=== PATIENT | male | born 1980 | race Caucasian/White ===

== ENCOUNTER → 2016-12-03 | Emergency (ER) | payer OTHER, SELFPAY ==
[~2016-12-03] VITALS: Ht 182.9 cm; Wt 86.2 kg
[~2016-12-03] MED LIST: AMOX500C; CARB20TA PO; CARB20TAXR; CLIN1CAP5 PO; CYCL5TA; IBUP600T26; carBAMazepine 200 MG TAB PO ONE
[2016-12-03 20:22] LABS: BASO % 0.4 % (0.0-1.0); EOS # 0.1 K/mm3 (0.0-0.50); LARGE UNSTAINED CELL # 0.2 K/mm3 (0.0-0.4); LYMPH # 2.7 K/mm3 (1.5-4.5); LYMPH % 31.1 % (24.0-44.0); MEAN CORPUSCULAR HGB CONC 33.2 g/dl (32.0-36.5); MEAN CORPUSCULAR VOLUME 96.5 fl (80.0-96.0); MONO # 0.5 K/mm3 (0.0-0.8); MONO % 5.6 % (0.0-5.0); NEUTROPHILS # 4.9 K/mm3 (1.8-7.7); NEUTROPHILS % 59.8 % (36.0-66.0); PLATELET COUNT, AUTOMATED 185 k/mm3 (150-450); RED CELL DISTRIBUTION WIDTH 12.6 % (11.5-14.5); WHITE BLOOD COUNT 8.2 K/mm3 (4.0-10.0)
[2016-12-03 20:43] LABS: ALBUMIN 3.8 GM/DL (3.2-5.2); ALBUMIN/GLOBULIN RATIO 1.41 (1.00-1.93); ALKALINE PHOSPHATASE 78 U/L (45-117); ALT/SGPT 42 U/L (12-78); ANION GAP 10 MEQ/L (8-16); AST/SGOT 25 U/L (15-37); BILIRUBIN,DIRECT < 0.1 MG/DL (0.0-0.2); BILIRUBIN,TOTAL 0.2 MG/DL (0.2-1.0); BLOOD UREA NITROGEN 8 MG/DL (7-18); CALCIUM LEVEL 8.7 MG/DL (8.5-10.1); CARBON DIOXIDE LEVEL 24 MEQ/L (21-32); CHLORIDE LEVEL 109 MEQ/L (98-107); CREATININE FOR GFR 1.22 MG/DL (0.70-1.30); GLOMERULAR FILTRATION RATE > 60.0 (>60); GLUCOSE, FASTING 120 MG/DL (70-105); POTASSIUM SERUM 3.7 MEQ/L (3.5-5.1); SODIUM LEVEL 143 MEQ/L (136-145); TOTAL PROTEIN 6.5 GM/DL (6.4-8.2)
[2016-12-03 21:54] VITALS: BP 138/74
--- NOTE | 2016-12-03 22:18 | ECGEPIP ---
Stationary ECG Study [facility] - ED Test Date: 2016-12-03 Pat Name: NAALILIA RAZA Department: Room: - Gender: M [employer] Manager: GrovesB: 1980 Requested By: VILLA SHARPE Order Number: [id number] Reading MD: Americo Moy Measurements Intervals [place] Rate: 82 P: 49 MD: 192 QRS: 26 QRSD: 85 T: 40 QT: 360 QTc: 422 Interpretive Statements SINUS RHYTHM Electronically Signed On 12-03-2016 22:18:12 EDT by Americo Moy
== END | disposition home or self-care (01) ==
LOC: EDUNIT# 19:39 → EDBD 19:43 → M ED 21:06
DX: G40.909 Epilepsy, unspecified, not intractable, without status epilepticus (principal); I10 Essential (primary) hypertension; Z79.899 Other long term (current) drug therapy; Z79.2 Long term (current) use of antibiotics

== ENCOUNTER 2017-04-16 15:49 | Emergency (ER) | payer MEDICAID, SELFPAY ==
[~2017-04-16] VITALS: Ht 182.9 cm; Wt 81.0 kg
[~2017-04-16 15:49] MED LIST changes: +CARB200T98; -CARB20TAXR; +CLIN150C14 PO; -CLIN1CAP5 PO; -CYCL5TA; +CYCL5TAB; +IBUP-1022; -IBUP600T26; -carBAMazepine 200 MG TAB PO ONE
[2017-04-16] MEDS ORDERED: ZONI100C2 OR (16:06)
[2017-04-16] MEDS ORDERED: NS 500 ML IV ONE (16:15)
--- NOTE | 2017-04-16 16:29 | REP ---
CT Head without contrast HISTORY: Altered mental status COMPARISON: 06/29/2016 There is no intraparenchymal hemorrhage, acute infarct, mass or midline shift. The ventricular system is normal in appearance. There is no extra cerebral collection. There is no fracture. The visualized sinuses are clear. 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 IMPRESSION: There is no intracranial lesion. Signed by Mj Pringle MD 04/16/2017 04:21 P
[2017-04-16 16:32] LABS: BASO % 0.2 % (0.0-1.0); EOS % 0.6 % (0.0-3.0); LARGE UNSTAINED CELL # 0.1 K/mm3 (0.0-0.4); LARGE UNSTAINED CELL % 1.1 % (0.0-4.0); LYMPH # 1.4 K/mm3 (1.5-4.5); LYMPH % 24.9 % (24.0-44.0); MEAN CORPUSCULAR HEMOGLOBIN 32.3 pg (27.0-33.0); MEAN CORPUSCULAR HGB CONC 33.7 g/dl (32.0-36.5); MEAN CORPUSCULAR VOLUME 95.8 fl (80.0-96.0); MONO # 0.3 K/mm3 (0.0-0.8); MONO % 5.2 % (0.0-5.0); NEUTROPHILS # 3.6 K/mm3 (1.8-7.7); NEUTROPHILS % 68.1 % (36.0-66.0); PLATELET COUNT, AUTOMATED 163 k/mm3 (150-450); RED CELL DISTRIBUTION WIDTH 12.6 % (11.5-14.5); WHITE BLOOD COUNT 5.3 K/mm3 (4.0-10.0)
--- NOTE | 2017-04-16 16:36 | REP ---
Chest one-view HISTORY: Altered mental status Comparison: 11/18/2014 The lungs are clear. The heart is normal in size. The pulmonary vasculature is normal in appearance. Impression: No acute disease. Signed by Mj Pringle MD 04/16/2017 04:29 P
[2017-04-16 16:45] LABS: ALBUMIN 4.2 GM/DL (3.2-5.2); ALBUMIN/GLOBULIN RATIO 1.45 (1.00-1.93); ALT/SGPT 26 U/L (12-78); ANION GAP 8 MEQ/L (8-16); AST/SGOT 12 U/L (15-37); BILIRUBIN,DIRECT 0.1 MG/DL (0.0-0.2); BILIRUBIN,TOTAL 0.4 MG/DL (0.2-1.0); BLOOD UREA NITROGEN 8 MG/DL (7-18); CALCIUM LEVEL 9.2 MG/DL (8.5-10.1); CARBAMAZEPINE (TEGRETOL) LEVEL 16.6 UG/ML (4.0-10.0); CARBON DIOXIDE LEVEL 25 MEQ/L (21-32); CHLORIDE LEVEL 109 MEQ/L (98-107); CREATININE FOR GFR 1.18 MG/DL (0.70-1.30); GLOMERULAR FILTRATION RATE > 60.0 (>60); GLUCOSE, FASTING 150 MG/DL (70-105); POTASSIUM SERUM 3.9 MEQ/L (3.5-5.1); SODIUM LEVEL 142 MEQ/L (136-145); TOTAL PROTEIN 7.1 GM/DL (6.4-8.2)
[2017-04-16 16:49] LABS: ALKALINE PHOSPHATASE 74 U/L (45-117)
[2017-04-16] MEDS ORDERED: ONDANSETRON 4MG/2ML VIAL (J2405) IV ONE (17:30)
[2017-04-16 17:48] LABS: METHADONE URINE NEGATIVE (NEGATIVE)
[2017-04-16] MEDS ORDERED: carBAMazepine XR 200 MG TAB PO ONE (18:00)
[2017-04-16] MEDS ORDERED: MAGNESIUM CITRATE 300 ML BTL PO ONE (18:30)
[2017-04-16] MEDS ORDERED: COLA100C5 PO (18:33)
[2017-04-16 18:50] VITALS: BP 142/87
--- NOTE | 2017-04-17 14:01 | ECGEPIP ---
Stationary ECG Study [facility] - ED Test Date: 2017-04-16 Pat Name: ANALILIA RAZA Department: Room: - Gender: M Asphalt Spreader Operator: sb : 1980 Requested By: Kaley Yeung Order Number: [id number] Reading MD: Tess Trejo Measurements Intervals [place] Rate: 62 P: 58 VA: 200 QRS: 76 QRSD: 91 T: 50 QT: 377 QTc: 385 Interpretive Statements SINUS RHYTHM EARLY REPOLARIZATION PROBABLE CLINICAL CORRELATION Electronically Signed On 04-17-2017 14:01:32 EDT by Tess Trejo
== END 2017-04-16 19:04 | disposition home or self-care (01) ==
LOC: M ED 15:49 → EDBD 15:49 → M ED 19:04
DX: G40.909 Epilepsy, unspecified, not intractable, without status epilepticus (principal); R41.82 Altered mental status, unspecified; R63.4 Abnormal weight loss; K59.00 Constipation, unspecified; I10 Essential (primary) hypertension; Z79.899 Other long term (current) drug therapy
CPT/HCPCS: 51701; 70450; 71010; 80048; 80076; 80156; 80164; 80307; 81001; 82140; 82550; 82553; 83605; 84443; 85025; 87086; 93005; 93041; 94760; 96374; 99285; G0480; J2405

== ENCOUNTER 2017-09-27 22:48 | Emergency (ER) | payer MEDICAID, OTHER ==
[2017-09-27 23:47] LABS: ANION GAP 8 MEQ/L (8-16); BLOOD UREA NITROGEN 8 MG/DL (7-18); CALCIUM LEVEL 8.5 MG/DL (8.5-10.1); CARBAMAZEPINE (TEGRETOL) LEVEL 1.1 UG/ML (4.0-10.0); CARBON DIOXIDE LEVEL 26 MEQ/L (21-32); CHLORIDE LEVEL 111 MEQ/L (98-107); CREATININE FOR GFR 1.06 MG/DL (0.70-1.30); GLOMERULAR FILTRATION RATE > 60.0 (>60); GLUCOSE, FASTING 116 MG/DL (70-105); POTASSIUM SERUM 3.5 MEQ/L (3.5-5.1); SODIUM LEVEL 145 MEQ/L (136-145)
[2017-09-28 00:02] LABS: ETHYL ALCOHOL (ETHANOL) < 0.003 % (0.000-0.010)
[2017-09-28] MEDS: carBAMazepine 200 MG TAB PO ×2 (00:29)
== END 2017-09-28 00:44 | disposition home or self-care (01) ==
LOC: M ED 22:48
DX: G40.909 Epilepsy, unspecified, not intractable, without status epilepticus (principal); Z91.14 Patient's other noncompliance with medication regimen; F17.200 Nicotine dependence, unspecified, uncomplicated; Z79.899 Other long term (current) drug therapy
CPT/HCPCS: 80320; G0480

== ENCOUNTER 2017-10-18 16:46 | Emergency (ER) | payer MEDICAID, OTHER ==
[2017-10-18 17:04] LABS: HEMATOCRIT 43.2 % (42.0-52.0); HEMOGLOBIN 13.7 g/dl (14.0-18.0); MEAN CORPUSCULAR HEMOGLOBIN 31.9 pg (27.0-33.0); MEAN CORPUSCULAR HGB CONC 31.7 g/dl (32.0-36.5); MEAN CORPUSCULAR VOLUME 100.5 fl (80.0-96.0); PLATELET COUNT, AUTOMATED 192 10^3/uL (150-450); RED CELL DISTRIBUTION WIDTH 12.2 % (11.5-14.5)
[2017-10-18] MEDS: LORazepam 2 MG/ML VIAL (J2060) IV ×2 (17:06)
[2017-10-18 17:10] LABS: ADD MANUAL DIFFER YES; DIFF SLIDE NUMBER 263; POSITIVE DIFF POS FLAG; WHITE BLOOD COUNT 10.9 10^3/uL (4.0-10.0)
[2017-10-18 17:31] LABS: ANION GAP 21 MEQ/L (8-16); BLOOD UREA NITROGEN 10 MG/DL (7-18); CALCIUM LEVEL 8.8 MG/DL (8.5-10.1); CARBON DIOXIDE LEVEL 13 MEQ/L (21-32); CHLORIDE LEVEL 108 MEQ/L (98-107); CREATININE FOR GFR 1.19 MG/DL (0.70-1.30); GLOMERULAR FILTRATION RATE > 60.0 (>60); GLUCOSE, FASTING 122 MG/DL (70-100); POTASSIUM SERUM 3.6 MEQ/L (3.5-5.1); SODIUM LEVEL 142 MEQ/L (136-145)
[2017-10-18] MEDS: NS 1,000 ML IV ×2 (17:33)
[2017-10-18 17:38] LABS: ATYPICAL LYMPH 7 % (0-5); EOSINOPHILS 1 % (0-5); LYMPHOCYTES 47 % (16-52); MONOCYTES 7 % (0-8); NEUTROPHILS 38 % (35-75); PLATELET ESTIMATE NORMAL (NORMAL)
[2017-10-18 17:39] LABS: POIKILOCYTOSIS 1+; TEAR DROP CELLS 1+
[2017-10-18 18:12] LABS: AMPHETAMINES LEVEL URINE NEGATIVE (NEGATIVE); BARBITURATES URINE NEGATIVE (NEGATIVE); BENZODIAZEPINES URINE NEGATIVE (NEGATIVE); CANNABINOIDS URINE POSITIVE (NEGATIVE); COCAINE METABOLITE URINE NEGATIVE (NEGATIVE); METHADONE URINE NEGATIVE (NEGATIVE); OPIATES URINE NEGATIVE (NEGATIVE); PHENCYCLIDINE URINE NEGATIVE (NEGATIVE)
[2017-10-18] MEDS: carBAMazepine 200 MG TAB PO ×4 (19:40→19:41)
[2017-10-18] MEDS: ZONISAMIDE 100 MG CAP (ZONEGRAN) PO ×2 (19:49)
[2017-10-19] MEDS ORDERED: ZONISAMIDE 100 MG CAP (ZONEGRAN) PO ×2 (09:00)
[2017-10-22 00:08] LABS: TOPIRAMATE LEVEL None Detected ug/mL (2.0-25.0)
== END 2017-10-18 20:00 | disposition home or self-care (01) ==
LOC: M ED 16:46
DX: G40.909 Epilepsy, unspecified, not intractable, without status epilepticus (principal); I10 Essential (primary) hypertension; F17.200 Nicotine dependence, unspecified, uncomplicated; Z79.899 Other long term (current) drug therapy
CPT/HCPCS: J2060

== ENCOUNTER 2018-01-16 18:10 | Emergency (ER) | payer MEDICAID ==
[2018-01-16 19:04] LABS: BASO % 0.5 % (0.0-1.0); EOS # 0.1 10^3/uL (0.0-0.50); EOS % 1.3 % (0.0-3.0); HEMOGLOBIN 13.8 g/dl (13.5-17.5); IMMATURE GRANULOCYTE % 0.5 % (0-3.0); LYMPH # 2.8 10^3/uL (1.5-4.5); LYMPH % 34.8 % (24.0-44.0); MEAN CORPUSCULAR HEMOGLOBIN 31.1 pg (27.0-33.0); MEAN CORPUSCULAR HGB CONC 32.9 g/dl (32.0-36.5); MEAN CORPUSCULAR VOLUME 94.6 fl (80.0-96.0); MONO # 0.7 10^3/uL (0.0-0.8); MONO % 8.7 % (0.0-5.0); NEUTROPHILS # 4.3 10^3/uL (1.8-7.7); NEUTROPHILS % 54.2 % (36.0-66.0); PLATELET COUNT, AUTOMATED 184 10^3/uL (150-450); RED BLOOD COUNT 4.44 10^6/uL (4.30-6.10); RED CELL DISTRIBUTION WIDTH 12.1 % (11.5-14.5)
[2018-01-16 19:20] LABS: ANION GAP 16 MEQ/L (8-16); BLOOD UREA NITROGEN 11 MG/DL (7-18); CALCIUM LEVEL 8.5 MG/DL (8.5-10.1); CARBAMAZEPINE (TEGRETOL) LEVEL < 0.5 UG/ML (4.0-10.0); CARBON DIOXIDE LEVEL 19 MEQ/L (21-32); CHLORIDE LEVEL 107 MEQ/L (98-107); CREATININE FOR GFR 1.32 MG/DL (0.70-1.30); ETHYL ALCOHOL (ETHANOL) < 0.003 % (0.000-0.010); GLOMERULAR FILTRATION RATE > 60.0 (>60); GLUCOSE, FASTING 92 MG/DL (70-100); POTASSIUM SERUM 3.5 MEQ/L (3.5-5.1); SODIUM LEVEL 142 MEQ/L (136-145)
[2018-01-16] MEDS: carBAMazepine 200 MG TAB PO (20:06)
[2018-01-16] MEDS: ZONISAMIDE 100 MG CAP (ZONEGRAN) PO (20:28)
[2018-01-16] MEDS: TETANUS/DIPHTHERIA TOX ADSORB ADULT 0.5ML SYR/VIAL (90714) IM (20:45)
[2018-01-16] MEDS: NS 1,000 ML IV (20:46)
== END 2018-01-16 21:47 | disposition home or self-care (01) ==
LOC: M ED 18:10
DX: G40.909 Epilepsy, unspecified, not intractable, without status epilepticus (principal); Z91.14 Patient's other noncompliance with medication regimen; Z79.899 Other long term (current) drug therapy
CPT/HCPCS: 90714

== ENCOUNTER 2018-01-31 21:34 | Emergency (ER) | payer OTHER, MEDICAID | END 2018-01-31 23:00 | disposition left against medical advice (07) | LOC: M ED 21:34 | DX: R56.9 Unspecified convulsions (principal) | CPT/HCPCS: 93005 ==

== ENCOUNTER 2018-02-04 16:17 | Emergency (ER) | payer OTHER | END 2018-02-04 17:15 | disposition home or self-care (01) | LOC: M ED 16:17 | DX: Z76.0 Encounter for issue of repeat prescription (principal); G40.909 Epilepsy, unspecified, not intractable, without status epilepticus; F17.200 Nicotine dependence, unspecified, uncomplicated; Z79.899 Other long term (current) drug therapy | CPT/HCPCS: 99282 ==

== ENCOUNTER → 2018-05-28 | Outpatient (REF) | payer MEDICAID ==
[2018-05-28 18:15] LABS: BASO % 0.6 % (0.0-1.0); EOS # 0.1 10^3/uL (0.0-0.50); EOS % 1.4 % (0.0-3.0); HEMATOCRIT 41.7 % (42.0-52.0); HEMOGLOBIN 13.7 g/dl (13.5-17.5); IMMATURE GRANULOCYTE % 0.2 % (0-3.0); LYMPH % 40.3 % (24.0-44.0); MEAN CORPUSCULAR HEMOGLOBIN 31.1 pg (27.0-33.0); MEAN CORPUSCULAR HGB CONC 32.9 g/dl (32.0-36.5); MEAN CORPUSCULAR VOLUME 94.8 fl (80.0-96.0); MONO # 0.4 10^3/uL (0.0-0.8); MONO % 8.2 % (0.0-5.0); NEUTROPHILS # 2.5 10^3/uL (1.8-7.7); NEUTROPHILS % 49.3 % (36.0-66.0); PLATELET COUNT, AUTOMATED 174 10^3/uL (150-450); RED CELL DISTRIBUTION WIDTH 12.9 % (11.5-14.5)
[2018-05-28 18:16] LABS: ALBUMIN 4.2 GM/DL (3.2-5.2); ALBUMIN/GLOBULIN RATIO 1.68 (1.00-1.93); ALKALINE PHOSPHATASE 72 U/L (45-117); ALT/SGPT 30 U/L (12-78); ANION GAP 7 MEQ/L (8-16); AST/SGOT 19 U/L (7-37); BILIRUBIN,TOTAL 0.2 MG/DL (0.2-1.0); BLOOD UREA NITROGEN 9 MG/DL (7-18); CALCIUM LEVEL 8.8 MG/DL (8.5-10.1); CARBAMAZEPINE (TEGRETOL) LEVEL 8.7 UG/ML (4.0-10.0); CARBON DIOXIDE LEVEL 26 MEQ/L (21-32); CHLORIDE LEVEL 111 MEQ/L (98-107); CREATININE FOR GFR 1.15 MG/DL (0.70-1.30); GLOMERULAR FILTRATION RATE > 60.0 (>60); GLUCOSE, FASTING 74 MG/DL (70-100); POTASSIUM SERUM 4.4 MEQ/L (3.5-5.1); SODIUM LEVEL 144 MEQ/L (136-145); TOTAL PROTEIN 6.7 GM/DL (6.4-8.2)
[2018-06-02 14:17] LABS: ZONISAMIDE LEVEL 2.3 ug/mL (10.0-40.0)
== END ==
LOC: M LABNEURO 11:41
DX: G40.909 Epilepsy, unspecified, not intractable, without status epilepticus (principal)

== ENCOUNTER 2018-11-20 10:37 | Emergency (ER) | payer MEDICAID, OTHER ==
[~2018-11-20] VITALS: Ht 182.9 cm; Wt 86.4 kg
[2018-11-20 10:37] VITALS: BP 134/78
[~2018-11-20 10:37] MED LIST changes: +CARB20TAXR PO; +COLA100C5 PO; +ZONI100C2 OR; +ZONI100C2 PO
[2018-11-20] MEDS ORDERED: CARB400T4 (10:42)
[2018-11-20] MEDS ORDERED: IBUP80TA PO (10:57)
[2018-11-20] MEDS ORDERED: MAGICMW SSP (10:57)
[2018-11-20] MEDS ORDERED: CLIN150C14 PO (10:57)
[2018-11-20] MEDS ORDERED: CLINDAMYCIN 150 MG CAP PO ONE (11:00)
[2018-11-20] MEDS ORDERED: KETOROLAC 60 MG/2 ML VIAL (J1885) IM ONE (11:00)
== END 2018-11-20 11:29 | disposition home or self-care (01) ==
LOC: M ED 10:37
DX: K04.7 Periapical abscess without sinus (principal); S02.5XXA Fracture of tooth (traumatic), initial encounter for closed fracture; X58.XXXA Exposure to other specified factors, initial encounter; Y92.89 Other specified places as the place of occurrence of the external cause; R22.0 Localized swelling, mass and lump, head; R56.9 Unspecified convulsions; Z79.899 Other long term (current) drug therapy; F17.200 Nicotine dependence, unspecified, uncomplicated
CPT/HCPCS: 96372; 99282; J1885

== ENCOUNTER 2019-05-15 10:21 | Emergency (ER) | payer OTHER, SELFPAY ==
[~2019-05-15] VITALS: Ht 182.9 cm; Wt 80.2 kg
[~2019-05-15 10:21] MED LIST changes: +CARB400T4 PO; +IBUP80TA PO; +MAGICMW SSP
[2019-05-15] MEDS ORDERED: ZONISAMIDE 100 MG CAP (ZONEGRAN) PO STA (10:33)
[2019-05-15 10:34] VITALS: BP 148/70
[2019-05-15] MEDS ORDERED: carBAMazepine 200 MG TAB PO ONE (10:45)
--- NOTE | 2019-05-15 11:05 | REP ---
Right clavicle two views: There is a midshaft clavicle fracture with inferior displacement of the distal fracture fragment. The acromioclavicular joint is unremarkable. Mineralization is normal. Impression: Clavicular fracture. Electronically Signed by Shai Kwan MD 05/15/2019 10:57 A
--- NOTE | 2019-05-15 11:08 | REP ---
CT of the head without contrast Indication: Trauma. Comparison: Head CT of 01/16/2018. Technique: Axial CT of the head was performed without contrast. Findings: There is no visible soft tissue swelling or calvarial fracture. There is no evidence of acute intracranial hemorrhage or extra-axial fluid collection. Baker-white matter differentiation is maintained. There is no mass effect or midline shift. The basal cisterns are patent. There is no hydrocephalus. The visualized paranasal sinuses and mastoid air cells are clear. Impression: No acute intracranial abnormality. Electronically Signed by Robinson Escalante MD 05/15/2019 11:00 A
[2019-05-15] MEDS ORDERED: NORCO, ANEXSIA 5/325MG TABLET (HYDROcodone/ACETAMINOPHEN) PO ONE (12:15)
[2019-05-15] MEDS ORDERED: NORC1TAB7 PO (12:46)
[2019-05-28] MEDS ORDERED: ZONI100C2 PO (11:25)
== END 2019-05-15 13:21 | disposition home or self-care (01) ==
LOC: M ED 10:21
DX: S42.001A Fracture of unspecified part of right clavicle, initial encounter for closed fracture (principal); S00.81XA Abrasion of other part of head, initial encounter; W18.39XA Other fall on same level, initial encounter; Y92.89 Other specified places as the place of occurrence of the external cause; G40.909 Epilepsy, unspecified, not intractable, without status epilepticus; Z91.19 Patient's noncompliance with other medical treatment and regimen; F17.210 Nicotine dependence, cigarettes, uncomplicated

== ENCOUNTER 2019-05-29 12:12 | Day surgery (SDC) | payer OTHER, SELFPAY ==
[~2019-05-29] VITALS: Ht 182.9 cm; Wt 86.2 kg
[~2019-05-29 12:12] MED LIST changes: +LR 1,000 ML IV ONE; +NORC1TAB7 PO
[2019-05-29] MEDS ORDERED: ROPIvacaine 0.5% 30 ML INJECTION (J2795 PER 1MG) ONE (12:13)
[2019-05-29] MEDS ORDERED: dexameTHASONE 10 MG/1 ML VIAL PRES.FREE (J1100) ONE (12:13)
[2019-05-29] MEDS ORDERED: EPINEPHrine INJ 1 MG/ML 1ML AMP ONE (12:13)
[2019-05-29] MEDS ORDERED: ONDANSETRON 4MG/2ML VIAL (J2405) As Ordered ONE (14:16)
[2019-05-29] MEDS ORDERED: PROPOFOL 200 MG/20 ML VIAL As Ordered ONE (14:16)
[2019-05-29] MEDS ORDERED: dexameTHASONE 4 MG/ML 1ML VIAL (J1100) As Ordered ONE (14:16)
[2019-05-29] MEDS ORDERED: ROCURONIUM BROMIDE 50 MG/5 ML VIAL As Ordered ONE (14:16)
[2019-05-29] MEDS ORDERED: LIDOCAINE 2% INJ 100 MG/5 ML SDV (FOR ANES.) As Ordered ONE (14:16)
[2019-05-29] MEDS ORDERED: fentaNYL 100 MCG/2 ML INJECTION (J3010) As Ordered ONE ×2 (14:16→14:41)
[2019-05-29] MEDS ORDERED: MIDAZOLAM INJ 2 MG/2 ML VIAL (J2250) As Ordered ONE ×2 (14:17→14:41)
[2019-05-29] MEDS ORDERED: MIDAZOLAM INJ 2 MG/2 ML VIAL (J2250) IV ONE (15:45)
[2019-05-29] MEDS ORDERED: fentaNYL 100 MCG/2 ML INJECTION (J3010) IV ONE (15:45)
[2019-05-29] MEDS ORDERED: ePHEDrine SULFATE 25 MG/5 ML(5MG/ML) SYRINGE As Ordered ONE (17:25)
[2019-05-29] MEDS ORDERED: SUGAMMADEX SODIUM 500 MG/5 ML VIAL (BRIDION) As Ordered ONE (17:53)
[2019-05-29] MEDS ORDERED: PERCOCET 5MG/325MG TAB PO PRN (18:30)
[2019-05-29] MEDS ORDERED: fentaNYL 100 MCG/2 ML INJECTION (J3010) IV PRN (18:30)
[2019-05-29] MEDS ORDERED: oxyCODONE 5MG TAB PO PRN ×2 (18:30)
[2019-05-29] MEDS ORDERED: ONDANSETRON 4MG/2ML VIAL (J2405) IV PRN (18:30)
[2019-05-29] MEDS ORDERED: LR 1,000 ML IV SCH (18:30)
[2019-05-29] MEDS ORDERED: MORPHINE 4 MG/ML 1ML VIAL/SYRINGE (J2270) IV PRN (18:30)
[2019-05-29 20:15] VITALS: BP 136/85
--- NOTE | 2019-05-30 09:55 | RO ---
DATE OF PROCEDURE: 05/29/2019 PREOPERATIVE DIAGNOSIS: Right comminuted clavicle fracture. POSTOPERATIVE DIAGNOSIS: Right comminuted clavicle fracture. PROCEDURE: Open reduction internal fixation (ORIF) of right clavicle fracture. SURGEON: Aaron Meza MD FOCUSED FACTORY MANAGER: Chun Guo PA-C. There was no other qualified individual available. ANESTHESIA: INDICATIONS: This is a pleasant 39-year-old male who unfortunately suffered a seizure and woke up in the hospital with severe clavicle pain. His clavicle had 100% displacement and significant shortening and therefore, we discussed nonoperative versus operative treatments and the options, and the patient elected to proceed with operative intervention. We discussed all the risks and benefits including but not limited to infection, malunion, nonunion, need for further surgery. The patient expressed understanding of this and wanted to proceed. ANTIBIOTICS: 2 grams Ancef. BLOOD LOSS: 100 mL. COMPLICATIONS: No complications. PROCEDURE DESCRIPTION: The patient was taken back to the operating room (OR), supine onto the operating table and underwent general anesthesia at which point we prepped and draped out the entire right arm and the right clavicle in the usual fashion, at which point we had a time out confirmed site, side and surgery. We then made an incision directly over the right clavicle exposing through subcutaneous tissue to platysma and down to the periosteum of the bone. We identified the fracture site, sponged the fracture fragments themselves to allow for adequate reduction. We encountered a large significant shortening that made it difficult to actually get reduction due to the contractures. It had to be thoroughly liberated of soft tissue attachments in order to get it out to length, and also had a small cortical piece that needed to be reduced in order to help with our read. Using pointed reduction clamps, we were able to obtain our reduction, at which point we used 2.7 lag screws, one for the small cortical piece and then two in the long spike to reduce our fracture. At this point, we used a 3.5 ten hole cortical plate that was bent to match his clavicle extending all the way from lateral to medial. We then did two cortical screws lateral along with one locking posterior to the fracture site along with three cortical screws medial to the fracture. We took final films with the C-arm confirming reduction and placed hardware. We were very happy with the anatomic reduction and the fixation at this point so we thoroughly irrigated the fracture point and the wound, enclosed the platysmal layer and periosteum with #2-0 Vicryl, subcutaneous tissue with #2-0 Vicryl and closed the skin with demar. We applied a orthopedic dressing overtop and placed the patient in a sling. The patient was awakened in the OR and taken to the postanesthesia care unit (PACU) in stable condition. POSTOPERATIVE PLAN: The patient will be a sling for the next two weeks, working on pain control, at which point we will see him in the office to remove the demar. At this point, he can start pendulum exercises and passive range of motion. It will not be until six weeks until we let him really start doing some true active range of motion in there months for strengthening. The patient expressed understanding and agreed with this plan and I will see him in the office.
--- NOTE | 2019-06-01 10:00 | REP ---
Flow patterns for clavicle fracture. Internal fixation: A series of 12 intraoperative fluoroscopic views are performed during internal fixation of the right clavicle. The final views demonstrate the fixation plate and clavicle to be in satisfactory positions alignment. Fluoroscopic exposure time is 11 seconds. The fluoroscopic images are performed with last image hold technology and require no additional radiation. Electronically Signed by Shai Kwan MD 06/01/2019 09:52 A
== END 2019-05-29 20:30 | disposition home or self-care (01) ==
LOC: M SDC 12:12
PROVIDERS: ATTEND Orthopaedic Surgery Hand Surgery
DX: S42.021A Displaced fracture of shaft of right clavicle, initial encounter for closed fracture (principal); X58.XXXA Exposure to other specified factors, initial encounter; Y92.89 Other specified places as the place of occurrence of the external cause; Y93.9 Activity, unspecified; Y99.9 Unspecified external cause status; G40.919 Epilepsy, unspecified, intractable, without status epilepticus; I10 Essential (primary) hypertension; F41.9 Anxiety disorder, unspecified; F32.9 Major depressive disorder, single episode, unspecified; F17.210 Nicotine dependence, cigarettes, uncomplicated; Z79.899 Other long term (current) drug therapy
CPT/HCPCS: 23515; 64415; 76000; C1713; J0690; J1100; J2250; J2405; J2795; J3010

== ENCOUNTER 2019-10-03 17:55 | Emergency (ER) | payer OTHER ==
[~2019-10-03] VITALS: Ht 182.9 cm; Wt 84.1 kg
[~2019-10-03 17:55] MED LIST changes: -LR 1,000 ML IV ONE; +ZONI100C17 OR; +ZONI100C17 PO; -ZONI100C2 OR; -ZONI100C2 PO
[2019-10-03] MEDS ORDERED: PERCOCET 5MG/325MG TAB PO ONE (18:30)
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
[2019-10-03 19:45] VITALS: BP 133/88
[2019-10-03] MEDS ORDERED: IBUP-1022 PO (19:45)
== END 2019-10-03 19:58 | disposition home or self-care (01) ==
LOC: M ED 17:55
DX: T14.8XXA Other injury of unspecified body region, initial encounter (principal); V03.10XA Pedestrian on foot injured in collision with car, pick-up truck or van in traffic accident, initial encounter; Y92.481 Parking lot as the place of occurrence of the external cause; F17.210 Nicotine dependence, cigarettes, uncomplicated

== ENCOUNTER 2020-07-15 10:13 | Emergency (ER) | payer OTHER ==
[~2020-07-15] VITALS: Ht 182.9 cm; Wt 105.0 kg
[~2020-07-15 10:13] MED LIST changes: +IBUP-1022 PO
[2020-07-15] MEDS ORDERED: methylPREDNISolone 125MG 2ML VIAL IM ONE (10:45)
[2020-07-15] MEDS ORDERED: CYCLOBENZAPRINE 10MG TABLET PO ONE (10:45)
[2020-07-15] MEDS ORDERED: KETOROLAC 60MG 2ML VIAL IM ONE (10:45)
[2020-07-15] MEDS ORDERED: LIDOCAINE 5% (LIDODERM) PATCH TD ONE (10:45)
[2020-07-15] MEDS ORDERED: CYCL-707 PO (12:31)
[2020-07-15] MEDS ORDERED: LIDO5DIS41 TOP (12:31)
[2020-07-15 12:41] VITALS: BP 145/91
[2020-07-15] MEDS ORDERED: **NOTE PATIENT COMMENT** MISC XX ONE (21:00)
[2020-07-15] MEDS ORDERED: **NOTE PATIENT COMMENT** MISC XX SCH (21:00)
== END 2020-07-15 12:44 | disposition home or self-care (01) ==
LOC: M ED 10:13
DX: M54.6 Pain in thoracic spine (principal); G40.909 Epilepsy, unspecified, not intractable, without status epilepticus; F17.200 Nicotine dependence, unspecified, uncomplicated; Z79.899 Other long term (current) drug therapy
CPT/HCPCS: 96372; 99283; J1885; J2930

== ENCOUNTER → 2021-06-21 | Outpatient (CLI) | payer OTHER ==
[~2021-06-21] MED LIST changes: -CLIN150C14 PO; +CLIN150C17 PO; +CYCL-707 PO; +LIDO5DIS41 TOP
[2021-06-21 15:15] LABS: BASO % 0.6 % (0.0-1.0); EOS # 0.1 10^3/uL (0.0-0.5); EOS % 1.9 % (0.0-3.0); HEMATOCRIT 44.3 % (42.0-52.0); HEMOGLOBIN 14.7 g/dl (13.5-17.5); LYMPH % 31.5 % (24.0-44.0); MEAN CORPUSCULAR HEMOGLOBIN 31.7 pg (27.0-33.0); MEAN CORPUSCULAR HGB CONC 33.2 g/dl (32.0-36.5); MEAN CORPUSCULAR VOLUME 95.7 fl (80.0-96.0); MONO # 0.6 10^3/uL (0.0-0.8); MONO % 8.9 % (2.0-8.0); NEUTROPHILS # 3.6 10^3/uL (1.5-8.5); NEUTROPHILS % 56.6 % (36.0-66.0); PLATELET COUNT, AUTOMATED 190 10^3/uL (150-450); RED BLOOD COUNT 4.63 10^6/uL (4.30-6.10); WHITE BLOOD COUNT 6.4 10^3/uL (4.0-10.0)
[2021-06-21 17:01] LABS: ALBUMIN 3.6 GM/DL (3.2-5.2); ALT/SGPT 47 U/L (12-78); BILIRUBIN,TOTAL 0.2 MG/DL (0.2-1.0); BLOOD UREA NITROGEN 10 MG/DL (7-18); CALCIUM LEVEL 8.9 MG/DL (8.5-10.1); CARBAMAZEPINE (TEGRETOL) LEVEL 6.4 UG/ML (4.0-10.0); CARBON DIOXIDE LEVEL 25 MEQ/L (21-32); CHLORIDE LEVEL 113 MEQ/L (98-107); CREATININE FOR GFR 1.15 MG/DL (0.70-1.30); GLOMERULAR FILTRATION RATE > 60.0 (>60); GLUCOSE, FASTING 107 MG/DL (70-100); POTASSIUM SERUM 4.3 MEQ/L (3.5-5.1); SODIUM LEVEL 143 MEQ/L (136-145); TOTAL PROTEIN 6.7 GM/DL (6.4-8.2)
== END ==
LOC: M LAB 14:27
PROVIDERS: ATTEND Psychiatry & Neurology Neurology
DX: R56.9 Unspecified convulsions (principal)

== ENCOUNTER → 2022-11-22 | Outpatient (CLI) | payer OTHER ==
[~2022-11-22] MED LIST changes: -ZONI100C17 OR; -ZONI100C17 PO; +ZONI100C67 OR; +ZONI100C67 PO
[2022-11-22 14:57] LABS: BASO % 0.6 % (0.0-1.0); EOS # 0.1 10^3/uL (0.0-0.5); EOS % 1.9 % (0.0-3.0); HEMATOCRIT 46.6 % (42.0-52.0); HEMOGLOBIN 14.7 g/dl (13.5-17.5); LYMPH # 2.4 10^3/uL (1.5-5.0); LYMPH % 35.3 % (24.0-44.0); MEAN CORPUSCULAR HEMOGLOBIN 30.4 pg (27.0-33.0); MEAN CORPUSCULAR HGB CONC 31.5 g/dl (32.0-36.5); MEAN CORPUSCULAR VOLUME 96.5 fl (80.0-96.0); MONO # 0.6 10^3/uL (0.0-0.8); MONO % 9.3 % (2.0-8.0); NEUTROPHILS # 3.6 10^3/uL (1.5-8.5); NEUTROPHILS % 52.6 % (36.0-66.0); PLATELET COUNT, AUTOMATED 197 10^3/uL (150-450); RED BLOOD COUNT 4.83 10^6/uL (4.30-6.10); WHITE BLOOD COUNT 6.9 10^3/uL (4.0-10.0)
[2022-11-22 15:25] LABS: TOTAL 25(OH) VITAMIN D 17.7 NG/ML (20.0-100.0)
[2022-11-24 08:09] LABS: CARBAMAZEPINE (TEGRETOL) LEVEL 9.6 ug/mL (4.0-12.0)
== END ==
LOC: M LAB 13:54
PROVIDERS: ATTEND Psychiatry & Neurology Neurology
DX: G40.909 Epilepsy, unspecified, not intractable, without status epilepticus (principal)

== ENCOUNTER 2023-01-22 19:12 | Emergency (ER) | payer OTHER ==
[~2023-01-22] VITALS: Ht 182.9 cm; Wt 93.9 kg
[2023-01-22] MEDS ORDERED: LIDOCAINE 1% MDV 20ML VIAL As Ordered ONE (23:26)
[2023-01-22] MEDS ORDERED: CEPHALEXIN 500 MG CAP PO ONE (23:45)
[2023-01-22] MEDS ORDERED: BOOSTRIX VACCINE (TETANUS/DIPHTH/ACEL. PERTUSSIS) 0.5ML SYR IM ONE (23:45)
[2023-01-23] MEDS ORDERED: CEPH500C PO (00:27)
[2023-01-23 00:38] VITALS: BP 134/85
== END 2023-01-23 00:37 | disposition home or self-care (01) ==
LOC: M ED 19:12
DX: S61.227A Laceration with foreign body of left little finger without damage to nail, initial encounter (principal); W26.0XXA Contact with knife, initial encounter; Y99.0 Civilian activity done for income or pay; Z79.899 Other long term (current) drug therapy; Z79.2 Long term (current) use of antibiotics

== ENCOUNTER 2023-05-11 20:18 | Observation (INO) | payer OTHER ==
[~2023-05-11] VITALS: Ht 182.9 cm; Wt 86.6 kg
[~2023-05-11 20:18] MED LIST changes: +CEPH500C PO
[2023-05-11] MEDS ORDERED: NS 1,000 ML IV ONE (21:05)
[2023-05-11 21:45] LABS: BASO % 0.2 % (0.0-1.0); EOS # 0.1 10^3/uL (0.0-0.5); EOS % 0.5 % (0.0-3.0); HEMATOCRIT 41.1 % (42.0-52.0); HEMOGLOBIN 13.9 g/dl (13.5-17.5); LYMPH # 1.6 10^3/uL (1.5-5.0); LYMPH % 12.3 % (24.0-44.0); MEAN CORPUSCULAR HEMOGLOBIN 31.2 pg (27.0-33.0); MEAN CORPUSCULAR HGB CONC 33.8 g/dl (32.0-36.5); MEAN CORPUSCULAR VOLUME 92.2 fl (80.0-96.0); MONO # 0.6 10^3/uL (0.0-0.8); MONO % 4.7 % (2.0-8.0); NEUTROPHILS # 10.5 10^3/uL (1.5-8.5); NEUTROPHILS % 81.8 % (36.0-66.0); PLATELET COUNT, AUTOMATED 173 10^3/uL (150-450); RED BLOOD COUNT 4.46 10^6/uL (4.30-6.10); WHITE BLOOD COUNT 12.9 10^3/uL (4.0-10.0)
[2023-05-11 21:58] LABS: INR 1.08; PROTHROMBIN TIME 13.7 SECONDS (12.5-14.5)
[2023-05-11 21:59] LABS: PARTIAL THROMBOPLASTIN TIME 24.8 SECONDS (24.8-34.2)
[2023-05-11 22:05] LABS: CK-MB VALUE MASS 3.7 NG/ML (<3.6)
[2023-05-11 22:07] LABS: BLOOD UREA NITROGEN 12 MG/DL (9-23); CARBON DIOXIDE LEVEL 25 MMOL/L (20-31); CHLORIDE LEVEL 109 MMOL/L (98-107); CPK CREATINE PHOSPHOKINASE 268 U/L (46-171); CREATININE FOR GFR 0.98 MG/DL (0.70-1.30); GLOMERULAR FILTRATION RATE > 60.0 (>60); GLUCOSE, FASTING 143 MG/DL (60-100); MAGNESIUM LEVEL 1.9 MG/DL (1.8-2.4); MB/CK RELATIVE INDEX 1.38 (< OR =4); POTASSIUM SERUM 3.8 MMOL/L (3.5-5.1); SODIUM LEVEL 142 MMOL/L (136-145)
[2023-05-11 22:08] LABS: THYROID STIMULATING HORMONE 1.399 uIU/ML (0.55-4.78)
[2023-05-11 22:10] LABS: FREE T4 0.95 NG/DL (0.89-1.76)
[2023-05-11 22:25] LABS: RSV AMPLIFICATION NEGATIVE (NEGATIVE)
[2023-05-11] MEDS ORDERED: HOME MED LIST COMPLETE! XX SCH (23:10)
[2023-05-11 23:27] LABS: AMPHETAMINES LEVEL URINE NEGATIVE (NEGATIVE); BARBITURATES URINE NEGATIVE (NEGATIVE); BENZODIAZEPINES URINE NEGATIVE (NEGATIVE); COCAINE METABOLITE URINE NEGATIVE (NEGATIVE); METHADONE URINE NEGATIVE (NEGATIVE); OPIATES URINE NEGATIVE (NEGATIVE); PHENCYCLIDINE URINE NEGATIVE (NEGATIVE)
[2023-05-11 23:29] LABS: CANNABINOIDS URINE POSITIVE (NEGATIVE); CK-MB VALUE MASS 3.7 NG/ML (<3.6)
[2023-05-11 23:31] LABS: MB/CK RELATIVE INDEX 1.46 (< OR =4)
[2023-05-12] MEDS ORDERED: ACETAMINOPHEN TAB 650MG DOSE (2X325MG) PO PRN (01:00)
[2023-05-12] MEDS: ZONISAMIDE 100 MG CAP (ZONEGRAN) PO SCH ×2 (01:39→20:26)
[2023-05-12] MEDS: carBAMazepine XR 200 MG TAB PO SCH ×3 (01:39→20:26)
[2023-05-12] MEDS: METOPROLOL TART 25 MG TABLET PO SCH ×2 (01:43→10:05)
[2023-05-12] MEDS: amLODIPine 5 MG TAB PO SCH ×2 (01:56→10:04)
[2023-05-12] MEDS ORDERED: NS 500 ML IV ONE (02:00)
[2023-05-12 07:52] LABS: ALBUMIN 3.6 G/DL (3.2-5.2); ALKALINE PHOSPHATASE 108 U/L (46-116); ALT/SGPT 28 U/L (7.0-40); AST/SGOT 17 U/L (<34); BILIRUBIN,TOTAL 0.5 MG/DL (0.3-1.2); BLOOD UREA NITROGEN 11 MG/DL (9-23); CARBON DIOXIDE LEVEL 25 MMOL/L (20-31); CHLORIDE LEVEL 111 MMOL/L (98-107); CREATININE FOR GFR 0.85 MG/DL (0.70-1.30); GLOMERULAR FILTRATION RATE > 60.0 (>60); GLUCOSE, FASTING 86 MG/DL (60-100); SODIUM LEVEL 142 MMOL/L (136-145); TOTAL PROTEIN 6.4 G/DL (5.7-8.2)
[2023-05-12] MEDS ORDERED: ASPIRIN 81MG CHEW TABLET PO SCH (09:00)
[2023-05-12 10:05] VITALS: BP 122/69
[2023-05-12 10:48] LABS: BASO % 0.3 % (0.0-1.0); EOS # 0.1 10^3/uL (0.0-0.5); HEMATOCRIT 43.6 % (42.0-52.0); HEMOGLOBIN 14.5 g/dl (13.5-17.5); LYMPH # 2.6 10^3/uL (1.5-5.0); MEAN CORPUSCULAR HEMOGLOBIN 31.2 pg (27.0-33.0); MEAN CORPUSCULAR HGB CONC 33.3 g/dl (32.0-36.5); MEAN CORPUSCULAR VOLUME 93.8 fl (80.0-96.0); MONO # 0.7 10^3/uL (0.0-0.8); MONO % 7.5 % (2.0-8.0); NEUTROPHILS # 5.3 10^3/uL (1.5-8.5); NEUTROPHILS % 60.7 % (36.0-66.0); PLATELET COUNT, AUTOMATED 197 10^3/uL (150-450); RED BLOOD COUNT 4.65 10^6/uL (4.30-6.10); WHITE BLOOD COUNT 8.7 10^3/uL (4.0-10.0)
[2023-05-12 11:15] LABS: PROCALCITONIN 0.05 ng/ml
[2023-05-12 12:50] VITALS: BP 140/90; TEMP 97; O2SAT 99
[2023-05-12 16:00] VITALS: BP 137/63; TEMP 97.8; O2SAT 99
[2023-05-12 21:15] VITALS: BP 135/75; TEMP 97.6; O2SAT 7; O2SAT 97
[2023-05-12 23:47] VITALS: BP 127/68; TEMP 97.7; O2SAT 98
[2023-05-13 04:30] VITALS: BP 129/62; TEMP 97.5; O2SAT 100
[2023-05-13 05:41] LABS: BASO % 0.4 % (0.0-1.0); EOS # 0.1 10^3/uL (0.0-0.5); EOS % 1.3 % (0.0-3.0); HEMATOCRIT 43.3 % (42.0-52.0); HEMOGLOBIN 14.2 g/dl (13.5-17.5); LYMPH # 2.8 10^3/uL (1.5-5.0); LYMPH % 40.2 % (24.0-44.0); MEAN CORPUSCULAR HEMOGLOBIN 30.7 pg (27.0-33.0); MEAN CORPUSCULAR HGB CONC 32.8 g/dl (32.0-36.5); MEAN CORPUSCULAR VOLUME 93.7 fl (80.0-96.0); MONO # 0.5 10^3/uL (0.0-0.8); MONO % 7.3 % (2.0-8.0); NEUTROPHILS # 3.5 10^3/uL (1.5-8.5); NEUTROPHILS % 50.5 % (36.0-66.0); PLATELET COUNT, AUTOMATED 172 10^3/uL (150-450); RED BLOOD COUNT 4.62 10^6/uL (4.30-6.10); WHITE BLOOD COUNT 6.9 10^3/uL (4.0-10.0)
[2023-05-13 06:11] LABS: BLOOD UREA NITROGEN 15 MG/DL (9-23); CALCIUM LEVEL 8.7 MG/DL (8.5-10.1); CARBON DIOXIDE LEVEL 23 MMOL/L (20-31); CHLORIDE LEVEL 112 MMOL/L (98-107); CREATININE FOR GFR 0.99 MG/DL (0.70-1.30); GLOMERULAR FILTRATION RATE > 60.0 (>60); GLUCOSE, FASTING 101 MG/DL (60-100); POTASSIUM SERUM 4.1 MMOL/L (3.5-5.1); SODIUM LEVEL 144 MMOL/L (136-145)
[2023-05-13 08:00] VITALS: BP 144/88; TEMP 96.7; O2SAT 100
[2023-05-13] MEDS ORDERED: ENOXAPARIN 40MG/0.4ML SYRINGE (J1650 PER 10MG) SC SCH (09:00)
[2023-05-13] MEDS ORDERED: amLODIPine 5 MG TAB PO SCH (09:00)
[2023-05-13] MEDS ORDERED: ASPIRIN 81MG CHEW TABLET PO SCH (09:00)
[2023-05-13] MEDS ORDERED: SENOKOT S TAB PO SCH (09:00)
[2023-05-13] MEDS: carBAMazepine XR 200 MG TAB PO SCH (09:40)
[2023-05-13] MEDS ORDERED: ECOT81TA5 PO (10:35)
[2023-05-13] MEDS ORDERED: AMLO1TAB24 PO (10:35)
[2023-05-13] MEDS ORDERED: MIRA3350 PO ×2 (10:36→10:37)
[2023-05-13 11:20] VITALS: BP_SYST 128; BP_SYST 132; BP_SYST 144; BP_DIAS 82; BP_DIAS 88
[2023-05-13 12:00] VITALS: BP 122/77; TEMP 96.6; O2SAT 99
== END 2023-05-13 14:54 | disposition home or self-care (01) ==
LOC: M ED 20:18 → EDBD 20:18 → M ED INP 20:19 → ENRESERV 05-12 11:43 → M PCU 05-12 12:37
PROVIDERS: ADMIT Internal Medicine; ATTEND Internal Medicine
DX: R55 Syncope and collapse (principal); G40.909 Epilepsy, unspecified, not intractable, without status epilepticus; I10 Essential (primary) hypertension; I48.91 Unspecified atrial fibrillation; F17.210 Nicotine dependence, cigarettes, uncomplicated; F12.10 Cannabis abuse, uncomplicated; Z79.82 Long term (current) use of aspirin; Z79.899 Other long term (current) drug therapy
CPT/HCPCS: 36415; 70450; 71045; 80048; 80053; 80156; 80203; 80307; 82550; 82553; 83735; 84145; 84439; 84443; 85025; 85610; 85730; 87631; 93005; 93041; 93306; 94760; 96372; 96374; 96376; 99285; J1650

== ENCOUNTER 2023-07-22 15:00 | Emergency (ER) | payer OTHER ==
[~2023-07-22] VITALS: Ht 182.9 cm; Wt 90.9 kg
[~2023-07-22 15:00] MED LIST changes: +AMLO1TAB24 PO; +ECOT81TA5 PO; +MIRA3350 PO
[2023-07-22 16:15] LABS: BLOOD UREA NITROGEN 19 MG/DL (9-23); CALCIUM LEVEL 9.4 MG/DL (8.5-10.1); CARBON DIOXIDE LEVEL 23 MMOL/L (20-31); CHLORIDE LEVEL 106 MMOL/L (98-107); CREATININE FOR GFR 1.02 MG/DL (0.70-1.30); GLOMERULAR FILTRATION RATE > 60.0 (>60); GLUCOSE, FASTING 110 MG/DL (60-100); POTASSIUM SERUM 4.1 MMOL/L (3.5-5.1); SODIUM LEVEL 137 MMOL/L (136-145)
[2023-07-22] MEDS ORDERED: carBAMazepine XR 200 MG TAB PO ONE (18:15)
[2023-07-22] MEDS ORDERED: NS 1,000 ML IV SCH (18:20)
[2023-07-22 18:58] LABS: BASO % 0.3 % (0.0-1.0); EOS # 0.1 10^3/uL (0.0-0.5); EOS % 0.7 % (0.0-3.0); HEMATOCRIT 42.6 % (42.0-52.0); HEMOGLOBIN 14.3 g/dl (13.5-17.5); LYMPH # 1.8 10^3/uL (1.5-5.0); LYMPH % 15.5 % (24.0-44.0); MEAN CORPUSCULAR HEMOGLOBIN 31.5 pg (27.0-33.0); MEAN CORPUSCULAR HGB CONC 33.6 g/dl (32.0-36.5); MEAN CORPUSCULAR VOLUME 93.8 fl (80.0-96.0); MONO # 0.6 10^3/uL (0.0-0.8); MONO % 5.5 % (2.0-8.0); NEUTROPHILS # 8.8 10^3/uL (1.5-8.5); NEUTROPHILS % 77.7 % (36.0-66.0); PLATELET COUNT, AUTOMATED 181 10^3/uL (150-450); RED BLOOD COUNT 4.54 10^6/uL (4.30-6.10); WHITE BLOOD COUNT 11.3 10^3/uL (4.0-10.0)
[2023-07-22 19:35] LABS: AMPHETAMINES LEVEL URINE NEGATIVE (NEGATIVE); BARBITURATES URINE NEGATIVE (NEGATIVE); COCAINE METABOLITE URINE NEGATIVE (NEGATIVE); METHADONE URINE NEGATIVE (NEGATIVE); OPIATES URINE NEGATIVE (NEGATIVE); PHENCYCLIDINE URINE NEGATIVE (NEGATIVE)
[2023-07-22 19:36] LABS: BENZODIAZEPINES URINE NEGATIVE (NEGATIVE)
[2023-07-22 19:39] LABS: CANNABINOIDS URINE POSITIVE (NEGATIVE)
[2023-07-22 21:15] VITALS: BP 137/71; TEMP 98.5; O2SAT 97
== END 2023-07-22 21:57 | disposition home or self-care (01) ==
LOC: M ED 15:00
DX: G40.909 Epilepsy, unspecified, not intractable, without status epilepticus (principal); I10 Essential (primary) hypertension; I48.91 Unspecified atrial fibrillation; F12.90 Cannabis use, unspecified, uncomplicated; F17.200 Nicotine dependence, unspecified, uncomplicated; Z79.899 Other long term (current) drug therapy

== ENCOUNTER → 2023-10-08 | Outpatient (REF) | payer OTHER ==
[2023-10-09 15:08] LABS: BASO % 0.5 % (0.0-1.0); EOS # 0.1 10^3/uL (0.0-0.5); HEMATOCRIT 41.2 % (42.0-52.0); HEMOGLOBIN 13.7 g/dl (13.5-17.5); LYMPH # 2.1 10^3/uL (1.5-5.0); LYMPH % 37.5 % (24.0-44.0); MEAN CORPUSCULAR HEMOGLOBIN 31.9 pg (27.0-33.0); MEAN CORPUSCULAR HGB CONC 33.3 g/dl (32.0-36.5); MONO # 0.7 10^3/uL (0.0-0.8); MONO % 11.7 % (2.0-8.0); NEUTROPHILS # 2.6 10^3/uL (1.5-8.5); NEUTROPHILS % 46.3 % (36.0-66.0); PLATELET COUNT, AUTOMATED 179 10^3/uL (150-450); RED BLOOD COUNT 4.29 10^6/uL (4.30-6.10); WHITE BLOOD COUNT 5.6 10^3/uL (4.0-10.0)
[2023-10-09 15:25] LABS: HEMOGLOBIN A1c 5.6 % (4.0-6.0)
[2023-10-09 15:33] LABS: BLOOD UREA NITROGEN 18 MG/DL (9-23); CALCIUM LEVEL 9.2 MG/DL (8.5-10.1); CARBON DIOXIDE LEVEL 25 MMOL/L (20-31); CHLORIDE LEVEL 110 MMOL/L (98-107); CHOLESTEROL LEVEL 183 MG/DL (<200); CHOLESTEROL RISK RATIO 4.13 (<5); CREATININE FOR GFR 0.89 MG/DL (0.70-1.30); GLOMERULAR FILTRATION RATE > 60.0 (>60); GLUCOSE, FASTING 93 MG/DL (60-100); HDL CHOLESTEROL 44.3 MG/DL (>40); LDL CHOLESTEROL 102.7 MG/DL (<100); NON-HDL-C 138.7 MG/DL; POTASSIUM SERUM 5.7 MMOL/L (3.5-5.1); SODIUM LEVEL 138 MMOL/L (136-145); TRIGLYCERIDES LEVEL 180 MG/DL (<150)
[2023-10-09 15:34] LABS: THYROID STIMULATING HORMONE 1.989 uIU/ML (0.55-4.78); TOTAL 25(OH) VITAMIN D 27.1 NG/ML (20.0-100.0)
== END ==
LOC: M LAB REF 12:55
PROVIDERS: ATTEND Nurse Practitioner Family
DX: E66.3 Overweight (principal); E55.9 Vitamin D deficiency, unspecified; Z11.9 Encounter for screening for infectious and parasitic diseases, unspecified

== ENCOUNTER 2023-10-26 19:16 | Emergency (ER) | payer OTHER ==
[2023-10-26] MEDS: LIDOCAINE 2% MDV 20ML VIAL SC ONE (19:35)
[2023-10-26] MEDS: NEOSPORIN OINT 0.9 GM PKT TOP ONE (20:00)
[2023-10-26 20:09] VITALS: BP 118/87; TEMP 98; O2SAT 97
== END 2023-10-26 20:35 | disposition home or self-care (01) ==
LOC: M ED 19:16 → EDBD 19:16 → M ED 20:35
DX: S61.512A Laceration without foreign body of left wrist, initial encounter (principal); W27.5XXA Contact with paper-cutter, initial encounter; I10 Essential (primary) hypertension; G40.909 Epilepsy, unspecified, not intractable, without status epilepticus; F12.10 Cannabis abuse, uncomplicated; F17.200 Nicotine dependence, unspecified, uncomplicated; Z86.79 Personal history of other diseases of the circulatory system; Y92.9 Unspecified place or not applicable; Y93.89 Activity, other specified; Y99.0 Civilian activity done for income or pay; Z79.899 Other long term (current) drug therapy

== ENCOUNTER → 2023-10-29 | Outpatient (REF) | payer OTHER ==
[2023-10-29 13:24] LABS: BLOOD UREA NITROGEN 15 MG/DL (9-23); CALCIUM LEVEL 8.6 MG/DL (8.5-10.1); CARBON DIOXIDE LEVEL 25 MMOL/L (20-31); CHLORIDE LEVEL 112 MMOL/L (98-107); CREATININE FOR GFR 0.97 MG/DL (0.70-1.30); GLOMERULAR FILTRATION RATE > 60.0 (>60); GLUCOSE, FASTING 97 MG/DL (60-100); POTASSIUM SERUM 4.3 MMOL/L (3.5-5.1); SODIUM LEVEL 140 MMOL/L (136-145)
== END ==
LOC: M LAB REF 12:32
PROVIDERS: ATTEND Nurse Practitioner Family
DX: E87.5 Hyperkalemia (principal)

== ENCOUNTER 2024-12-08 11:08 | Emergency (ER) | payer OTHER, BC ==
[~2024-12-08] VITALS: Ht 182.9 cm; Wt 101.5 kg
[~2024-12-08 11:08] MED LIST changes: +CARB-115; -CARB200T98; +CARB400T11 PO; -CARB400T4 PO; -CYCL5TAB; +CYCL5TAB4
[2024-12-08] MEDS: BOOSTRIX VACCINE (TETANUS/DIPHTH/ACEL. PERTUSSIS) 0.5ML SYR IM.IMMUN ONE (15:15)
[2024-12-08] MEDS: LIDOCAINE 1% MDV 20ML VIAL SC ONE (15:16)
[2024-12-08] MEDS ORDERED: CEPH500C PO (15:31)
[2024-12-08 15:40] VITALS: BP 142/79; TEMP 97.8; O2SAT 100
== END 2024-12-08 15:42 | disposition home or self-care (01) ==
LOC: M ED 11:08
DX: S61.212A Laceration without foreign body of right middle finger without damage to nail, initial encounter (principal); W23.1XXA Caught, crushed, jammed, or pinched between stationary objects, initial encounter; Y92.89 Other specified places as the place of occurrence of the external cause; Y93.89 Activity, other specified; Y99.0 Civilian activity done for income or pay; Z79.2 Long term (current) use of antibiotics; Z79.899 Other long term (current) drug therapy; Z23 Encounter for immunization

== ENCOUNTER 2025-05-25 13:43 | Emergency (ER) | payer BC, OTHER ==
[~2025-05-25] VITALS: Ht 182.9 cm; Wt 128.4 kg
[~2025-05-25 13:43] MED LIST changes: -IBUP-1022; -IBUP-1022 PO; +IBUP600T42; +IBUP600T42 PO; +LIDO1ADH93 TOP; -LIDO5DIS41 TOP
[2025-05-25 13:59] VITALS: BP 148/85; TEMP 96.9; O2SAT 99
[2025-05-25] MEDS: ONDANSETRON 4MG ORAL DISINTEGRATING TAB PO ONE (14:35)
[2025-05-25] MEDS ORDERED: ONDA-282 PO (15:02)
== END 2025-05-25 15:10 | disposition home or self-care (01) ==
LOC: M ED 13:43
DX: R11.2 Nausea with vomiting, unspecified (principal); R19.7 Diarrhea, unspecified; F17.200 Nicotine dependence, unspecified, uncomplicated; G40.909 Epilepsy, unspecified, not intractable, without status epilepticus; R51.9 Headache, unspecified; F41.9 Anxiety disorder, unspecified; F32.A Depression, unspecified; Z86.79 Personal history of other diseases of the circulatory system; Z79.83 Long term (current) use of bisphosphonates; Z79.899 Other long term (current) drug therapy

== ENCOUNTER 2025-06-03 10:06 | Emergency (ER) | payer BC ==
[~2025-06-03] VITALS: Ht 182.9 cm; Wt 97.7 kg
[~2025-06-03 10:06] MED LIST changes: +ONDA-282 PO
[2025-06-03 10:46] LABS: BASO # 0.0 10^3/uL (0.0-0.2); BASO % 0.6 % (0.0-1.0); EOS # 0.1 10^3/uL (0.0-0.5); EOS % 1.0 % (0.0-3.0); LYMPH # 2.7 10^3/uL (1.5-5.0); LYMPH % 38.6 % (24.0-44.0); MONO # 0.6 10^3/uL (0.0-0.8); MONO % 9.1 % (2.0-8.0); NEUTROPHILS # 3.5 10^3/uL (1.5-8.5); NEUTROPHILS % 50.3 % (36.0-66.0); PLATELET COUNT, AUTOMATED 186 10^3/uL (150-450)
[2025-06-03 11:06] LABS: ALT/SGPT 36 U/L (7.0-40); AST/SGOT 31 U/L (<34); CALCIUM LEVEL 8.9 MG/DL (8.5-10.1); CARBON DIOXIDE LEVEL 22 MMOL/L (20-31); CHLORIDE LEVEL 109 MMOL/L (98-107); CREATININE FOR GFR 1.00 MG/DL (0.70-1.30); GLOMERULAR FILTRATION RATE > 90.0 (>60); POTASSIUM SERUM 3.5 MMOL/L (3.5-5.1); SODIUM LEVEL 138 MMOL/L (136-145)
[2025-06-03 11:15] LABS: AMPHETAMINES LEVEL URINE NEGATIVE (NEGATIVE); BARBITURATES URINE NEGATIVE (NEGATIVE); BENZODIAZEPINES URINE NEGATIVE (NEGATIVE); COCAINE METABOLITE URINE NEGATIVE (NEGATIVE)
[2025-06-03 11:16] LABS: METHADONE URINE NEGATIVE (NEGATIVE); OPIATES URINE NEGATIVE (NEGATIVE); PHENCYCLIDINE URINE NEGATIVE (NEGATIVE)
[2025-06-03 11:23] LABS: MAGNESIUM LEVEL 1.9 MG/DL (1.8-2.4)
[2025-06-03 11:25] LABS: CANNABINOIDS URINE POSITIVE (NEGATIVE)
[2025-06-03] MEDS ORDERED: ISOVUE-370 76% 100 ML VIAL As Ordered ONE (12:56)
[2025-06-03 15:11] VITALS: BP 127/71; TEMP 96; O2SAT 99
[2025-06-05 12:47] LABS: CARBAMAZEPINE (TEGRETOL) SO 8.2 mg/L (4.0-12.0)
== END 2025-06-03 15:28 | disposition home or self-care (01) ==
LOC: EDBD 10:06 → M ED 10:06
DX: R41.82 Altered mental status, unspecified (principal); G40.909 Epilepsy, unspecified, not intractable, without status epilepticus; I10 Essential (primary) hypertension; F17.200 Nicotine dependence, unspecified, uncomplicated; F12.10 Cannabis abuse, uncomplicated; F41.9 Anxiety disorder, unspecified; F32.A Depression, unspecified; Z86.79 Personal history of other diseases of the circulatory system; Z79.899 Other long term (current) drug therapy
CPT/HCPCS: 36415; 70450; 70496; 70498; 80053; 80156; 80203; 80307; 83735; 84484; 85025; 93005; 99284; Q9967

== ENCOUNTER → 2025-06-07 | Outpatient (REF) | payer BC ==
[2025-06-07 17:07] LABS: ESTIMATED AVERAGE GLUCOSE 111.0 MG/DL (60-110)
[2025-06-07 17:11] LABS: CALCIUM LEVEL 9.1 MG/DL (8.5-10.1); CARBON DIOXIDE LEVEL 26 MMOL/L (20-31); CHLORIDE LEVEL 109 MMOL/L (98-107); CHOLESTEROL LEVEL 250 MG/DL (<200); CHOLESTEROL RISK RATIO 5.85 (<5); CREATININE FOR GFR 1.00 MG/DL (0.70-1.30); GLOMERULAR FILTRATION RATE > 90.0 (>60); LDL CHOLESTEROL 155.1 MG/DL (<100); NON-HDL-C 207.3 MG/DL; POTASSIUM SERUM 4.3 MMOL/L (3.5-5.1); SODIUM LEVEL 140 MMOL/L (136-145); TRIGLYCERIDES LEVEL 261 MG/DL (<150)
== END ==
LOC: M LAB REF 16:16
PROVIDERS: ATTEND Nurse Practitioner Family
DX: E66.3 Overweight (principal)

== ENCOUNTER → 2025-06-09 | Outpatient (CLI) | payer BC | LOC: M EKG 08:45 | PROVIDERS: ATTEND Nurse Practitioner Family | DX: I48.0 Paroxysmal atrial fibrillation (principal) ==

== ENCOUNTER → 2025-08-18 | Outpatient (REF) | payer BC | LOC: M LAB REF 17:43 | PROVIDERS: ATTEND Physician Assistant | DX: B34.9 Viral infection, unspecified (principal) ==